=== PATIENT | female | born 1950 | race Caucasian/White ===

== ENCOUNTER → 2018-09-03 | Outpatient (CLI) | payer MEDICARE, SELFPAY ==
[2018-09-03 11:56] VITALS: BP 139/60; PULSE 68; RESP 20; TEMP 36.5; O2SAT 98
[2018-09-03] MEDS: Omnipaque 240 MG/ML 50 ML BTL IJ (12:26)
[2018-09-03] MEDS: methylPREDNISolone ACETATE 80 MG/ML VIAL IJ (12:27)
[2018-09-03] MEDS: Bupivacaine 0.5% Pres-Free 10 ML VIAL IJ (12:39)
[2018-09-03 12:40] VITALS: BP 158/57; PULSE 79; RESP 22; O2SAT 95
--- NOTE | 2018-09-03 12:43 | DI.RAD_ITS ---
SYMPTOMS/DIAGNOSIS: SACROILIAC JOINT DYSFUNCTION PAIN CLINIC: Fluoroscopy Time: 42.3 sec 9.64 Fluoroscopy was utilized by Dr. Swann during the performance of a sacroiliac joint injection. Please refer to the procedure report for complete details.
--- NOTE | 2018-09-03 12:51 | PDOC.PAIN ---
Pain Clinic Procedure Note Current Active Problems Problem Status Onset Sacroiliac dysfunction Chronic INTRA-ARTICULAR SI JOINT INJECTION ANSHUL HUERTA has been referred to the [facility] for intra-articular SI joint injection. COMMENTS: Pain over right SI joint Patient was interviewed and the medical record reviewed. There were no medical, pharmacologic, radiographic or other structural contraindications to attempting fluoroscopically guided intra-articular SI joint injection. Risks and expected side effects as well as potential benefit of the procedure were reviewed and voiced concerns addressed. The printed consent form was signed and witnessed. Standard time-out procedure was performed. Patient was placed in the prone position on the fluoroscopy table and automated blood pressure cuff and pulse oximeter applied. The skin entry point for approaching {right} SI joints was identified under the most advantageous fluoroscopic view and marked. Following thorough Chlorhexadine preparation of the skin and draping and 1% lidocaine infiltration of the skin entry point and subcutaneous tissues, a 22 gauge spinal needle was placed under fluoroscopic guidance into {righl} SI joints was identified under the most advantageous fluoroscopic view and marked. Following thorough Chlorhexadine preparation of the skin and draping and 1% lidocaine infiltration of the skin entry point and subcutaneous tissues, a 22 gauge spinal needle was placed under fluoroscopic guidance into {right} SI joint. Intra-articular placement was confirmed by a clear arthrogram resulting from the injection of 0.25ml Omnipaque 240, 1ml 0.5% bupivacaine, and half ml (40mg) of 80mg concentration Depomedrol were injected intra-articularily with an initial reproduction of a significant component of the usual pain. Vital signs were stable throughout the procedure and were as recorded in the docflowsheet by the nursing staff. If given, dosages of intravenous drugs for anxiolysis and analgesia were documented in MAR. Follow up plans and appointments were discussed with the patient. Post procedure instruction was given as documented in nursing documentation and having met discharge criteria, and was discharged from the [facility]. COMMENTS: Pain went from 7/10 to 0/10. f/u prn CC: Manoj Ortiz
--- NOTE | 2018-09-03 12:54 | PDOC.PAIN_ITS ---
Pain Clinic Procedure Note Current Active Problems Problem Status Onset Sacroiliac dysfunction Chronic INTRA-ARTICULAR SI JOINT INJECTION ANSHUL HUERTA has been referred to the [facility] for intra- articular SI joint injection. COMMENTS: Pain over right SI joint Patient was interviewed and the medical record reviewed. There were no medical , pharmacologic, radiographic or other structural contraindications to attempting fluoroscopically guided intra-articular SI joint injection. Risks and expected side effects as well as potential benefit of the procedure were reviewed and voiced concerns addressed. The printed consent form was signed and witnessed. Standard time-out procedure was performed. Patient was placed in the prone position on the fluoroscopy table and automated blood pressure cuff and pulse oximeter applied. The skin entry point for approaching {right} SI joints was identified under the most advantageous fluoroscopic view and marked. Following thorough Chlorhexadine preparation of the skin and draping and 1% lidocaine infiltration of the skin entry point and subcutaneous tissues, a 22 gauge spinal needle was placed under fluoroscopic guidance into {righl} SI joints was identified under the most advantageous fluoroscopic view and marked. Following thorough Chlorhexadine preparation of the skin and draping and 1% lidocaine infiltration of the skin entry point and subcutaneous tissues, a 22 gauge spinal needle was placed under fluoroscopic guidance into {right} SI joint. Intra-articular placement was confirmed by a clear arthrogram resulting from the injection of 0.25ml Omnipaque 240, 1ml 0.5% bupivacaine, and half ml (40mg) of 80mg concentration Depomedrol were injected intra- articularily with an initial reproduction of a significant component of the usual pain. Vital signs were stable throughout the procedure and were as recorded in the docflowsheet by the nursing staff. If given, dosages of intravenous drugs for anxiolysis and analgesia were documented in MAR. Follow up plans and appointments were discussed with the patient. Post procedure instruction was given as documented in nursing documentation and having met discharge criteria, and was discharged from the [facility]. COMMENTS: Pain went from 7/10 to 0/10. f/u prn CC: Manoj Ortiz
== END ==
PROVIDERS: PCP Internal Medicine; Visit Provider Anesthesiology Pain Medicine
DX: M54.5 Low back pain (principal); M53.3 Sacrococcygeal disorders, not elsewhere classified; G89.29 Other chronic pain
CPT/HCPCS: 27096; 72200; J1040; Q9967

== ENCOUNTER 2019-09-01 06:17 | Day surgery (SDC) | payer MEDICARE, SELFPAY ==
[2019-09-01] VITALS (9 sets, daily range): BP systolic 111–183; BP diastolic 53–97; PULSE 60–78; RESP 15–27; TEMP 36.2–36.5; O2SAT 93–99
[2019-09-01] MEDS: Lactated Ringers 1,000 ML 80 ML IV (07:05)
--- NOTE | 2019-09-01 07:40 | W.PM.DSUDISC ---
Discharge Plan Disposition Patient Disposition: HOME Condition: Good Discharge Details Attending Provider: Allen John Primary Care Provider: Aurora Woodard Home Meds and New Rx's Prescriptions: No Action esomeprazole magnesium [Nexium] 40 MG capsule,delayed release(DR/EC) 40 mg PO DAILY Qty: 90 RF: 3 losartan 25 MG tablet 50 mg PO DAILY Qty: 90 RF: 3 escitalopram oxalate 10 MG tablet 5 mg PO DAILY Qty: 90 RF: 3 ferrous sulfate 325 MG tablet 325 mg PO DAILY AM Qty: 180 RF: 3 docusate sodium [Colace] 100 mg Capsule 1 cap PO PRN PRNRF: 0 Trelegy Ellipta 100-62.5-25 mcg Blister With Device 1 inh INHALATION DAILY RF: 0 cetirizine 10 mg Tablet 5 mg PO DAILY RF: 0 montelukast 10 mg Tablet 10 mg PO DAILY RF: 0 Discharge Instructions Additional Instructions: see sheet Equipment/Supplies: Brace Remove Dressings/Wound Care:: 24 hours Shower/Bathe:: 24 hours Diet:: As Tolerated DS: Diagnosis Discharge Diagnosis (1) Lesion of tonsil: Status: Acute (2) History of oral cancer: Status: Acute (3) History of smoking: Status: Acute
--- NOTE | 2019-09-01 08:00 | TONSIL_PTH ---
PATIENT: Gianna Hall LOC: [facility] U#:[id number] AGE/SX: 69/F ROOM: RE09/01/[address]: Allen John DO : 1950 BED: DIS: 09/01/2019 SPEC #: [id number] RECD: 09/01/19 12:31 STATUS: KELLY REQ #: [id number] KIARA: 09/01/19 08:[address]: Allen John DEPT: Surgical Specimen RECD BY: Rhoda Razo ENTERED: 09/01/19 12:31 SP TYPE: TONSIL OTHR DR: Aurora Woodard Tissues: 1 - TONSIL AGE 17 & OVER 2 - TONSIL AGE 17 & OVER Procedures: GROSS AND MICRO LEVEL 3 Comments: [id number]
[2019-09-01] MEDS: Oxymetazolone 0.05% SPRAY 15 ML BTL (08:05)
[2019-09-01] MEDS: fentaNYL 100 MCG/2 ML VIAL IVP (08:49)
[2019-09-01] MEDS: ACETAMINOPHEN 1,000 MG/100 ML BTL 400 MG IVPB (09:20)
[2019-09-01] MEDS: oxyCODONE 5 mg/Acetaminophen 325 mg TAB 1 TAB PO (10:40)
--- NOTE | 2019-09-01 12:28 | ROE_ITS ---
DATE OF PROCEDURE: September 01, 2019 PREOPERATIVE DIAGNOSIS: 1. History of chronic sore throat. 2. History of oral cancer. 3. Asymmetry tonsils. 4. Tonsil lesion. POSTOPERATIVE DIAGNOSIS: 1. History of chronic sore throat. 2. History of oral cancer. 3. Asymmetry tonsils. 4. Tonsil lesion. 5. Left mid pole tonsillar abscess. SURGERY: Tonsillectomy. SURGEON: Allen John D.O. COMPLICATIONS: None. CONDITION: The patient tolerated the procedure well. SPECIMENS: 1 + tonsils; left firm fibrotic tonsil with history of oral cancer, pathology pending. Le ft mid pole abscess identified. INDICATIONS FOR PROCEDURE: This is a pleasant 69-year-old female who presents with a history of oral cancer, asymmetry to her tonsils and chronic sore throat. The decision was made forth to proceed wi th tonsillectomy for biopsy and pathology analysis. Risks and complications were discussed in detail . Consent was placed in the Chart. PROCEDURE IN DETAIL: Patient was brought back to the operating suite in stable condition, placed sup ine on the operating table, and intubated in normal fashion. The table was rotated 90 degrees. There was no evidence of submucosal clefting or bifid uvula. The McIvor retractor was placed in the oral ca vity and suspended from the Awad stand. The right tonsil was grasped in the superior pole and mediali zed. Pinpoint cautery was used to develop the peritonsillar fascial plane, dissection was carried out to the upper and mid portions of the tonsil with final amputation conducted with suction cautery. Th ere was no bleeding within the right tonsillar fossa. Next, the left tonsil was grasped in the superi or pole with a curved Allis forceps and medialized. Pinpoint cautery was used to develop the peritons illar fascial plane. Dissection was carried out in the plane in the superior and mid portion of the t onsils. Final amputation was conducted with suction cautery without bleeding within left fossa, Valsa lva was performed without bleeding. TMJ's were checked and were free of dislocation. Gastric contents suctioned. The patient tolerated the procedure well and went to PACU in stable condition.
== END 2019-09-01 11:28 | disposition home or self-care (01) ==
PROVIDERS: PCP Physician Assistant Medical; Visit Provider Otolaryngology Otolaryngology/Facial Plastic Surgery
PROC: (CPT 42826; principal; 2019-09-01 07:30)
DX: Z85.819 Personal history of malignant neoplasm of unspecified site of lip, oral cavity, and pharynx; J31.2 Chronic pharyngitis; J35.8 Other chronic diseases of tonsils and adenoids; J35.1 Hypertrophy of tonsils; J36 Peritonsillar abscess; I10 Essential (primary) hypertension; J44.9 Chronic obstructive pulmonary disease, unspecified
CPT/HCPCS: 42826; 88304; J0131; J1100; J2250; J2405; J3010

== ENCOUNTER 2020-11-12 08:56 | Day surgery (SDC) | payer MEDICARE, SELFPAY ==
[2020-11-12 09:15] VITALS: BP 140/61; PULSE 62; RESP 14; TEMP 36.1; O2SAT 99
[2020-11-12] MEDS: Tropicam./Phenyleph. (1/2.5%) 5 ML BTL OD ×3 (09:34→09:45)
[2020-11-12] MEDS: Tetracaine 0.5% 4 ML BTL OD (11:29)
[2020-11-12] MEDS: Balanced Salt Soln.-PLUS 500 ML BAG (11:30)
[2020-11-12] MEDS: Duovisc Viscoelastic System EACH 1 EACH (11:31)
[2020-11-12] MEDS: Lidocaine 1% Pres-Free 5 ML VIAL (11:31)
[2020-11-12] MEDS: Lidocaine 2% Jelly 6 ML SYR (11:32)
[2020-11-12] MEDS: Povidone-Iodine Ophth 30 ML BTL (11:35)
--- NOTE | 2020-11-12 12:03 | W.PM.DSUDISC ---
Discharge Plan Disposition Patient Disposition: HOME Condition: Good Discharge Details Attending Provider: Robb Frias Primary Care Provider: Aurora Woodard Home Meds and New Rx's Prescriptions: No Action esomeprazole magnesium [Nexium] 40 MG capsule,delayed release(DR/EC) 40 mg PO DAILY Qty: 90 RF: 3 losartan 25 MG tablet 50 mg PO DAILY Qty: 90 RF: 3 escitalopram oxalate 10 MG tablet 5 mg PO DAILY Qty: 90 RF: 3 docusate sodium [Colace] 100 mg Capsule 1 cap PO PRN PRNRF: 0 Trelegy Ellipta 100-62.5-25 mcg Blister With Device 1 inh INHALATION DAILY RF: 0 folic acid 1 mg Tablet 1 mg PO DAILY RF: 0 B12 Active 1,000 mcg Tablet,Chewable 1,000 mcg PO DAILY RF: 0 Discharge Instructions Stand Alone Forms: Post-op Topical Cataract Discharge Orders Discharge Orders: Discharge Order (Routine); Ordered 11/12/20 Ordered By: Robb Frias DS: Diagnosis Discharge Diagnosis (1) Cortical cataract of left eye: Status: Acute (2) Nuclear sclerotic cataract of left eye: Status: Resolved
--- NOTE | 2020-11-12 12:05 | W.PM.OP ---
Date of service: 11/12/20 Time of Service: 12:06 Operative Note Operative Note DATE OF PROCEDURE: 11/12/20 PRE-OP DIAGNOSIS: Nuclear/cortical cataract, left eye POST-OP DIAGNOSIS: same PROCEDURE: Cataract extraction using phacoemulsification with intraocular lens implant, left eye SURGEON: Robb Frias ANESTHESIA: MAC and local (sub-tenon's anesthetic infiltration) PATHOLOGY: none sent COMPLICATIONS: None Patient was transported to: same day Patient's condition: stable Implants: Nile and Nile Vision / [facility] Medical Optics Tecnis ZCB00 Indications: Progressive decreased vision due to cataract, left eye Procedure Description: CATARACT SURGERY OPERATIVE REPORT PREOPERATIVE DIAGNOSIS: Nuclear/cortical cataract, left eye POSTOPERATIVE DIAGNOSIS: Same OPERATION: Cataract extraction using phacoemulsification with posterior chamber intraocular lens implant, left eye. IOL: IOL Erp Business Analyst/Model: J&J Vision / DAVID Tecnis ZCB00 IOL Power: + 23.5 diopters IOL Serial Number: [id number] Optic Diameter: 6.0mm Haptic/Overall Diameter: 13.0mm PHACO INFO: Ruperto Morris Innovativeurion Vision System with OZil and Active Fluidics Cumulative Dispersed Energy (CDE): 4.73 seconds SURGEON: Robb Frias MD, VANESSA ANESTHESIA: Monitored Anesthesia Care (MAC), with local sub-tenon's anesthetic infiltration COMPLICATIONS: None SPECIMENS: None INDICATIONS FOR PROCEDURE: The patient is a 70-year-old lady with history of diminished visual acuity in her left eye. She is noted to have significant nuclear and cortical cataract in that eye. The option of cataract surgery was offered to the patient and she wished to proceed. PROCEDURE: The correct surgical eye was identified and marked as the left eye and the pupil was dilated in the preoperative area using mydriatics and cycloplegics. The dilated pupil size was 7.0 mm. She elected to proceed without sedation. The patient was brought to the operating room where cardiopulmonary monitoring was instituted and surgical time-out was performed, confirming the correct operative eye and IOL power. Topical anesthesia was administered and ophthalmic povidone-iodine 5% was instilled into the conjunctival fornices. Lidocaine gel was applied to the cornea and the radha-ocular area was prepped with Betadine 10% solution and draped in the usual sterile fashion for intraocular surgery, including an aperture drape. A Tegaderm transparent film dressing was cut in half and used to cover the lashes and lid margins. Care was taken to sequester the lashes and lid margins under the Tegaderm dressing. A lid speculum was placed between the lids of the operative eye and the Myra-Adela operating microscope was maneuvered into position. Kaiden scissors were then used to make a conjunctival buttonhole approximately 6mm posterior to the limbus in the inferonasal quadrant. Blunt dissection was carried out to expose bare sclera, and a blunt-tipped sub-tenon?s anesthesia cannula was introduced and passed posteriorly along the globe where non-preserved plain lidocaine was injected into posterior sub-Tenon?s space. A sideport knife was used to make a paracentesis port superior/superiortemporally. Intraocular phenylephrine/lidocaine was injected into the anterior chamber. The anterior chamber was then filled with viscoelastic. A 2.4mm keratome knife was used to create a half-thickness groove at the limbus and then to construct a three-plane near-clear corneal tunnel extending 2.0mm into clear cornea in the temporal position. . A flap was raised on the anterior capsule and capsulorhexis forceps were used to complete a continuous curvilinear capsulorhexis of 5.0 mm. Balanced salt solution was then used to perform cortical cleaving hydrodissection and nuclear hydrodelineation until the lens could be freely rotated within the capsular bag. The lens nucleus was then disassembled and removed within the capsular bag and iris plane using phacoemulsification. Residual cortical material was removed using the 45-degree angled silicone I/A tip with 0.3mm port. The posterior capsule was carefully polished to remove as much residual lens epithelial cells as safely possible. The posterior capsule was noted to be extremely thin. The capsular bag was then inflated and the anterior chamber deepened with viscoelastic. The lens implant described above was inserted into the capsular bag using the DAVID [place] Injector. A Kuglen hook was used to dial the IOL into position. Residual viscoelastic was then removed first from posterior to the IOL, then from the anterior chamber using the I/A handpiece. The lens implant was noted to center nicely within the capsular bag. The incisions were stromally hydrated, and the anterior chamber was reformed using BSS. Then 0.5cc of moxifloxacin 1.0mg/ml were injected into the capsular bag and anterior chamber. The incisions were checked with a Weck spear and found to be secure. Several drops of ophthalmic povidone-iodine 5% were then applied to the eye followed by two drops of Imprimis combination prednisolone/moxifloxacin/nepafenac solution. The drapes were removed and a clear plastic protective eye shield was placed over the eye. The patient was then returned to Same Day Surgery in stable condition.
== END 2020-11-12 12:30 | disposition home or self-care (01) ==
PROVIDERS: PCP Physician Assistant Medical; Visit Provider Ophthalmology
PROC: (CPT 66984; principal; 2020-11-12 11:30)
DX: H25.012 Cortical age-related cataract, left eye (principal); H25.12 Age-related nuclear cataract, left eye; J44.9 Chronic obstructive pulmonary disease, unspecified; F17.210 Nicotine dependence, cigarettes, uncomplicated; K21.9 Gastro-esophageal reflux disease without esophagitis; R13.10 Dysphagia, unspecified
CPT/HCPCS: 66984; V2632

== ENCOUNTER 2020-11-26 06:44 | Day surgery (SDC) | payer MEDICARE, SELFPAY ==
[2020-11-26 06:54] VITALS: BP 157/61; PULSE 56; RESP 16; TEMP 36.2; O2SAT 98
[2020-11-26] MEDS: Tropicam./Phenyleph. (1/2.5%) 5 ML BTL OD ×3 (07:06→07:16)
[2020-11-26] MEDS: Balanced Salt Soln.-PLUS 500 ML BAG (08:32)
[2020-11-26] MEDS: Lidocaine 1% Pres-Free 5 ML VIAL (08:33)
[2020-11-26] MEDS: Duovisc Viscoelastic System EACH 1 EACH (08:33)
[2020-11-26] MEDS: Lidocaine 2% Jelly 6 ML SYR (08:34)
[2020-11-26] MEDS: Povidone-Iodine Ophth 30 ML BTL (08:35)
[2020-11-26] MEDS: Tetracaine 0.5% 4 ML BTL OD (08:35)
--- NOTE | 2020-11-26 08:40 | W.PM.DSUDISC ---
Discharge Plan Disposition Patient Disposition: HOME Condition: Good Discharge Details Attending Provider: Robb Frias Primary Care Provider: Aurora Woodard Home Meds and New Rx's Prescriptions: No Action esomeprazole magnesium [Nexium] 40 MG capsule,delayed release(DR/EC) 40 mg PO DAILY Qty: 90 RF: 3 losartan 25 MG tablet 50 mg PO DAILY Qty: 90 RF: 3 escitalopram oxalate 10 MG tablet 5 mg PO DAILY Qty: 90 RF: 3 docusate sodium [Colace] 100 mg Capsule 1 cap PO PRN PRNRF: 0 Trelegy Ellipta 100-62.5-25 mcg Blister With Device 1 inh INHALATION DAILY RF: 0 folic acid 1 mg Tablet 1 mg PO DAILY RF: 0 B12 Active 1,000 mcg Tablet,Chewable 1,000 mcg PO DAILY RF: 0 Discharge Instructions Stand Alone Forms: Post-op Topical Cataract, Becki Aquino (DSU) Discharge Orders Discharge Orders: Discharge Order (Routine); Ordered 11/26/20 Ordered By: Robb Frias DS: Diagnosis Discharge Diagnosis (1) Cortical cataract of right eye: Status: Resolved (2) Nuclear sclerotic cataract of right eye: Status: Resolved
--- NOTE | 2020-11-26 08:41 | ROE_ITS ---
Date of service: 11/26/20 Time of Service: 08:41 Operative Note Operative Note DATE OF PROCEDURE: 11/26/20 PRE-OP DIAGNOSIS: Nuclear/cortical cataract, right eye POST-OP DIAGNOSIS: same PROCEDURE: Cataract extraction using phacoemulsification with intraocular lens implant, right eye SURGEON: Robb Frias Refer to Anesthesia Record ESTIMATED BLOOD LOSS: 0 PATHOLOGY: none sent COMPLICATIONS: None Patient was transported to: same day Patient's condition: stable Implants: Nile and Nile Vision / [employer] Tecnis ZCB00 intraocular lens Indications: Progressive decreased vision due to cataract, right eye Procedure Description: CATARACT SURGERY OPERATIVE REPORT PREOPERATIVE DIAGNOSIS: Nuclear/cortical cataract, right eye POSTOPERATIVE DIAGNOSIS: Same OPERATION: Cataract extraction using phacoemulsification with posterior chamber intraocular lens implant, right eye. IOL: IOL Ball Rolling Machine Operator/Model: J&J Vision / DAVID Tecnis ZCB00 IOL Power: + 22.0 diopters IOL Serial Number: [id number] Optic Diameter: 6.0mm Haptic/Overall Diameter: 13.0mm PHACO INFO: Ruperto [employer] Solutionsurion Vision System with OZil and Active Fluidics Cumulative Dispersed Energy (CDE): 6.78 seconds SURGEON: Robb Frias MD, VANESSA ANESTHESIA: Monitored Anesthesia Care (MAC), with local sub-tenon's anesthetic infiltration COMPLICATIONS: None SPECIMENS: None INDICATIONS FOR PROCEDURE: The patient is a 70-year-old lady with history of diminished visual acuity in both eyes secondary to the development of bilateral cataract. She has already undergone cataract surgery in her left eye and is doing well postoperatively. She now presents for cataract surgery in the right eye. PROCEDURE: The correct surgical eye was identified and marked as the right eye and the pupil was dilated in the preoperative area using mydriatics and cyclo plegics. The dilated pupil size was 7.5 mm. Patient elected to proceed without oral sedation.. The patient was brought to the operating room where cardiopulmonary monitoring was instituted and surgical time-out was performed, confirming the correct operative eye and IOL power. Topical anesthesia was administered and ophthalmic povidone-iodine 5% was instilled into the conjunctival fornices. Lidocaine gel was applied to the cornea and the radha-ocular area was prepped with Betadine 10% solution and draped in the usual sterile fashion for intraocular surgery, including an aperture drape. A Tegaderm transparent film dressing was cut in half and used to cover the lashes and lid margins. Care was taken to sequester the lashes and lid margins under the Tegaderm dressing. A lid speculum was placed between the lids of the operative eye and the Myra-Adela operating microscope was maneuvered into position. Kaiden scissors were then used to make a conjunctival buttonhole approximately 6mm posterior to the limbus in the inferonasal quadrant. Blunt dissection was carried out to expose bare sclera, and a blunt-tipped sub-tenon?s anesthesia cannula was introduced and passed posteriorly along the globe where non- preserved plain lidocaine was injected into posterior sub-Tenon?s space. A sideport knife was used to make a paracentesis port inferiortemporally. Intraocular phenylephrine/lidocaine was injected into the anterior chamber. The anterior chamber was then filled with viscoelastic. A 2.4mm keratome knife was used to create a half-thickness groove at the limbus and then to construct a three-plane near-clear corneal tunnel extending 2.0mm into clear cornea in the superiortemporal position. . A flap was raised on the anterior capsule and capsulorhexis forceps were used to complete a continuous curvilinear capsulorhexis of 5.0 mm. Balanced salt solution was then used to perform cortical cleaving hydrodissection and nuclear hydrodelineation until the lens could be freely rotated within the capsular bag. The lens nucleus was then disassembled and removed within the capsular bag and iris plane using phacoemulsification. Residual cortical material was removed using the I/A handpiece. The posterior capsule was carefully polished to remove as much residual lens epithelial cells as safely possible. The capsular bag was then inflated and the anterior chamber deepened with viscoelastic. The lens implant described above was inserted into the capsular bag using the DAVID [place] Injector. A Kuglen hook was used to dial the IOL into position. Residual viscoelastic was then removed first from posterior to the IOL, then from the anterior chamber using the I/A handpiece. The lens implant was noted to center nicely within the capsular bag. The incisions were stromally hydrated, and the anterior chamber was reformed using BSS. Then 0.5cc of moxifloxacin 1.0mg/ml were injected into the capsular bag and anterior chamber. The incisions were checked with a Weck spear and found to be secure. Several drops of ophthalmic povidone-iodine 5% were then applied to the eye followed by two drops of Imprimis combination prednisolone/moxifloxacin/nepafenac solution. The drapes were removed and a clear plastic protective eye shield was placed over the eye. The patient was then returned to Same Day Surgery in stable condition.
[2020-11-26 08:53] VITALS: BP 168/68
== END 2020-11-26 08:58 | disposition home or self-care (01) ==
PROVIDERS: PCP Physician Assistant Medical; Visit Provider Ophthalmology
PROC: (CPT 66984; principal; 2020-11-26 08:30)
DX: H25.011 Cortical age-related cataract, right eye (principal); H25.11 Age-related nuclear cataract, right eye; Z98.42 Cataract extraction status, left eye; Z96.1 Presence of intraocular lens
CPT/HCPCS: 66984; V2632

== ENCOUNTER → 2022-05-03 01:59 | Outpatient (CLI) | payer MEDICARE, SELFPAY ==
--- NOTE | 2022-05-03 07:45 | DI.CTLCSR_ITS ---
Exam(s) CT CHEST LUNG CANCER SCREEN EXAM: CT CHEST LUNG CANCER SCREEN CLINICAL HISTORY: Screening for lung cancer,former smoker, z87.891 TECHNIQUE: Imaging Protocol: Axial computed tomography images with coronal and sagittal reformatted images were created and reviewed. Low dose screening protocol. COMPARISON: CT CT CHEST LOW DOSE CA SCREENING from 11/28/[address] CHEST LOW DOSE CA SCREENING from 05/30/2021 FINDINGS: Tracheobronchial tree: Stable medial right middle lobe bronchiectasis and atelectasis. No mucus plug ging.. Mediastinum and Terrie: No dominant adenopathy or fluid collection. Pulmonary parenchyma: No consolidation or dominant measurable mass. Moderate emphysematous changes. Mild parenchymal scarring. Lung Nodules: 3 x 4 millimeter right lower lobe nodule. 4.5 x 3.7 millimeter left lower lobe nodule. After Pleura: No effusion. No pneumothorax. Heart: The heart is not dilated. Moderate coronary artery calcifications are seen. Aorta: Thoracic aorta non-dilated.Mild atherosclerotic changes. Upper abdomen: Small hiatal hernia, increasing in size from the prior exam. Bones: Unremarkable for age. Soft Tissues: Unremarkable. IMPRESSION: Small bilateral pulmonary nodules.. Lung RADS Cat 2 - Benign Appearance / Behavior: Nodules with a very low likelihood of becoming a clin ically active cancer due to size or lack of growth Lung-RADS 1.0 CATEGORIES: Category 0 - Prior chest CT exam(s) being located for comparison. Category 1 - Annual screening in 12 months. No nodules or definitely benign nodules. Category 2 - Annual screening in 12 months. Benign appearance. Nodules with low likelihood of becomin g active cancer. Category 3 - 6-month follow-up. Probably benign. Short-term follow-up suggested. Nodules with low lik elihood of becoming active cancer. Category 4A - 3-month follow-up and CT/PET if >8 mm in size. Suspicious finding. Findings which requi re additional testing. Category 4B - Findings which require additional testing and tissue sampling. Category 4X - Category 3 or 4 nodules with additional features or imaging findings that increases the suspicion of malignancy. Modifier S- Potentially clinically significant findings (non lung cancer) RADIATION DOSE DELIVERED: 63.62mGy.cm Total DLP 1.84mGy CTDIvol DATA REPOSITORY: All CT scans at this facility are submitted to the National Radiology Data Registry (NRDR) Dose Index Registry (DIR) with the [employer] (ACR). RADIATION OPTIMIZATION: All CT scans at this facility use at least one of these dose optimization te chniques: automated exposure control; mA and/or kV adjustment per patient size (includes targeted exa ms where dose is matched to clinical indication); or iterative reconstruction.
== END ==
PROVIDERS: PCP Physician Assistant Medical; Visit Provider Student in an Organized Health Care Education/Training Program
DX: Z87.891 Personal history of nicotine dependence (principal); Z12.2 Encounter for screening for malignant neoplasm of respiratory organs; R91.8 Other nonspecific abnormal finding of lung field
CPT/HCPCS: 71271

== ENCOUNTER 2023-01-31 15:18 | Outpatient (REF) | payer MEDICARE, SELFPAY ==
[2023-01-31 16:09] LABS: Abs Immature Grans 0.18 10^3/uL (0.0-0.06); Absolute Basophil Count 0.06 10^3/uL (0.0-0.2); Absolute Eosinophil Count 0.16 10^3/uL (0.0-0.7); Absolute Lymphocyte Count 0.83 10^3/uL (1.2-3.4); Absolute Monocyte Count 0.71 10^3/uL (0.1-0.8); Absolute Neutrophil Count 10.26 10^3/uL (1.2-6.7); Basophils % 0.5; Eosinophils % 1.3; HCT 35.8 % (36.0-46.0); HGB 11.5 g/dL (11.2-15.7); Immature Grans % 1.5; Lymphocytes % 6.8; MCH 31.5 pg (27.0-33.0); MCHC 32.1 % (32.0-36.0); MCV 98 fL (80-95); MPV 8.8 fL (8.0-11.0); Monocytes % 5.8; Neutrophils % 84.1; Platelet Count 439 10^3/uL (130-400); RBC 3.65 10^6/uL (3.93-5.22); RDW 12.4 % (11.7-14.6); RDW-SD 45.2 fL
[2023-01-31 16:28] LABS: ALT 60 U/L (14-59); AST 24 U/L (15-37); Albumin 3.3 g/dL (3.4-5.0); Alkaline Phosphatase 63 U/L (46-116); Anion Gap 10.3 mmol/L (3-11); BUN 16 mg/dL (7-18); Bilirubin, Total 0.3 mg/dL (0.2-1.0); CO2 26.7 mmol/L (21.0-32.0); CREATININE 0.9 mg/dL (0.55-1.02); Calcium 8.8 mg/dL (8.5-10.1); Chloride 103 mmol/L (98-107); Estimated GFR 68.77 (mL/min/1.73m2); Glucose 117 mg/dL (74-106); Potassium 3.9 mmol/L (3.5-5.1); Sodium 140 mmol/L (136-145); Total Protein 6.9 g/dL (6.4-8.2)
[2023-01-31 18:07] LABS: Procalcitonin < 0.1 ng/mL
== END 2023-01-31 15:19 | disposition home or self-care (01) ==
LOC: LBN 15:18
PROVIDERS: PCP Physician Assistant Medical; Visit Provider Physician Assistant Surgical
DX: J44.9 Chronic obstructive pulmonary disease, unspecified (principal); R50.9 Fever, unspecified; Z87.891 Personal history of nicotine dependence
CPT/HCPCS: 80053; 84145; 85025

== ENCOUNTER → 2023-12-26 09:09 | Outpatient (BNVA) | payer MEDICARE, SELFPAY | PROVIDERS: PCP Physician Assistant Medical; Referring Provider Physician Assistant Medical; Visit Provider Physician Assistant Surgical | DX: J44.9 Chronic obstructive pulmonary disease, unspecified (principal); R91.8 Other nonspecific abnormal finding of lung field; Z87.891 Personal history of nicotine dependence | CPT/HCPCS: 99214 ==

== ENCOUNTER → 2024-06-24 08:52 | Outpatient (BNVA) | payer MEDICARE, SELFPAY | PROVIDERS: PCP Physician Assistant Medical; Referring Provider Physician Assistant Medical; Visit Provider Physician Assistant Surgical | DX: J44.9 Chronic obstructive pulmonary disease, unspecified (principal); R91.8 Other nonspecific abnormal finding of lung field; Z87.891 Personal history of nicotine dependence | CPT/HCPCS: 99214 ==

== ENCOUNTER → 2025-01-29 07:32 | Outpatient (BNVA) | payer MEDICARE, SELFPAY | PROVIDERS: PCP Physician Assistant Medical; Referring Provider Physician Assistant Medical; Visit Provider Physician Assistant Surgical | DX: J44.9 Chronic obstructive pulmonary disease, unspecified (principal); R91.8 Other nonspecific abnormal finding of lung field; Z87.891 Personal history of nicotine dependence | CPT/HCPCS: 99214 ==

== ENCOUNTER 2025-03-19 00:42 | Outpatient (CLI) | payer MEDICARE, SELFPAY ==
--- NOTE | 2025-03-19 08:30 | DI.US_ITS ---
APPROVED REPORT EXAM: Comprehensive 2D, Doppler, and color-flow Echocardiogram Patient Location: Out-Patient Payroll Director: Sendy Villarreal RDCS (AE) Indications: worsening symptoms SOB, Dizziness, Fatigue Other Information Study Quality: Adequate Conclusion Normal left ventricular wall thickness and chamber size. Ejection fraction is 60%. Wall motion is normal Normal right ventricular size and function Both atria are normal in size There is no significant valvular disease Estimated right ventricular systolic pressure is 36 mmHg Wall motion Left Ventricle The left ventricle is normal size. The left ventricular systolic function is normal. The left ventricular ejection fraction is within the normal range. There is normal left ventricular wall thickness. There is normal LV segmental wall motion. There is no ventricular septal defect visualized. LVEF is 60%. Right Ventricle The right ventricle is normal size. The right ventricular systolic function is normal. Atria The left atrium size is normal. The right atrium size is normal. The interatrial septum is intact with no evidence for an atrial septal defect. Aortic Valve The aortic valve is normal in structure. Aortic valve is trileaflet. There is no aortic valvular stenosis. Trace aortic regurgitation. Mitral Valve The mitral valve is normal in structure. No evidence of mitral valve stenosis. Trace mitral regurgitation. Tricuspid Valve The tricuspid valve is normal in structure. There is no tricuspid valve stenosis. Mild tricuspid regurgitation. The RVSP is 36.2mmHg. Pulmonic Valve The pulmonary valve is normal in structure. There is no pulmonic valvular stenosis. Trace pulmonic regurgitation. Great Vessels The aortic root is normal in size. The ascending aorta is normal in size. Aortic arch is normal in caliber. IVC is normal in size and collapses >50% with inspiration. Pericardium There is no pericardial effusion. 2D Dimensions IVSD d PLAX 0.77 cm F: 0.6-1.0 Ao Root d 2.13 cm F: 2.7 - 3.3 LVPW d PLAX 0.78 cm F: 0.6 - 1.0 Ao Asc Diam d 2.93 cm F: 2.3 - 3.1 LVID d PLAX 4.37 cm F: 3.8 - 5.2 LVDs 3.03 cm F: 2.2 - 3.5 LV EF Teichholz 58.2 % FS 30.52 % LV EDV (Teich) 86.2 mL LV ESV (Teich) 36.0 mL M-Mode TAPSE 2.62 cm (M/F) >1.7 Auto EF LV EDV A4C 75.9 mL LV EDV A2C 85.9 mL LV EDV BP 82.4 mL LV ESV A4C 32.1 mL LV ESV A2C 34.9 mL LV ESV BP 32.9 mL LVEF(%) A4C 57.7 % LVEF(%) A2C 59.4 % LVEF(%) BP 60.1 % LV SV A4C 43.8 ml LV SV A2C 51.0 ml LV SV BP 49.5 ml LV CO A4C 2.5 L/min LV CO A2C 2.7 L/min LV CO BP 2.6 L/min HR A4C 56.43 BPM HR A2C 52.25 BPM LV EDV Index (BP) LA Volume LA Length A4C 4.3 cm LA Length A2C 4.8 cm LA Area A4C s 13.17 cm2 LA Area A2C s 14.78 cm2 LA Vol A4C A-L 34.13 mL LA Vol A2C A-L 38.23 mL LA Vol Biplane A-L 38.3 mL LA Vol/BSA A4C A-L LA Vol/BSA A2C A-L LA Vol/BSA BP A-L 25.7 mL/m2 LA Vol A4C MOD 31.7 mL LA Vol A2C MOD 36.0 mL LA Vol BP MOD 35.7 mL RA Volume RA Area A4C 13.6 cm2 RA ESV A4C (A-L) 33.6mL RA Vol/BSA A4C A-L RA Length A4C 4.7 cm RA ESV A4C (MOD) 32.8mL LV Diastology MV E' medial 0.056 (>0.07 m/s) MV E Vmax 0.95 (0.4-1.3 m/s) MV E/E' MED 16.82 (<14) MV A Vmax 1.25 (0.4-1.3 m/s) MV E' lateral 0.087 (>0.1 m/s) E/A Ratio 0.8 MV E/E' LAT 10.81 (<14) MV E' Average 0.072 m/s MV E/E'(average) 13.16 Aortic Valve AoV Vmax 1.56 m/s LVOT Vmax 1.18 m/s AoV Peak Grad 9.8 mmHg LVOT Peak Grad 5.6 mmHg AoV Area (Vmax) 1.86 cm2 LVOT VTI 0.330 m AoV VTI 0.467 m LVOT Mean Grad 3.0 mmHg AoV Mean Urban. 1.15 m/s LVOT SV 81.10 mL AoV Mean Grad 5.8 mmHg LVOT Diam s 1.75 cm AoV Area (VTI) 1.73 cm2 AV Regurg Peak Gr. 9.76 mmHg Velocity Ratio 0.76 Mitral Valve MV DT 218 (160-240 msec) MV Vmax TIPS 1.19 m/s MV Mean Grad 1.7 (<2mmHg) MV VTI 0.368 m Pulmonary Valve PV Vmax 0.90 (0.5-1.5 m/s) RVOT Vmax 0.85 m/s PV Peak Grad 3.3 mmHg RVOT Peak Gr. 2.9 mmHg PV Mean Urban 0.68 m/s RVOT VTI 0.256 m PV Mean Grad 2.1 mmHg RVOT Mean Gr. 2.0 mmHg Tricuspid Valve RA Pressure 3.00 mmHg TR Vmax 2.88 m/s TV S' 0.13 m/s TR Peak Grad 33.1 mmHg RVSP (TR) 36.2 mmHg
== END 2025-03-19 01:02 ==
LOC: DI 00:42
PROVIDERS: PCP Physician Assistant Medical; Visit Provider Internal Medicine Cardiovascular Disease
DX: R06.02 Shortness of breath (principal); R53.83 Other fatigue; R51.9 Headache, unspecified; R42 Dizziness and giddiness
CPT/HCPCS: 93306

== ENCOUNTER → 2025-07-30 10:11 | Outpatient (BNVA) | payer MEDICARE, SELFPAY | PROVIDERS: PCP Physician Assistant Medical; Referring Provider Physician Assistant Medical; Visit Provider Physician Assistant Surgical | DX: J44.9 Chronic obstructive pulmonary disease, unspecified (principal); R91.8 Other nonspecific abnormal finding of lung field; Z87.891 Personal history of nicotine dependence | CPT/HCPCS: 99214; G0296 ==